=== PATIENT | female | born 1960 | race African-American/Black ===

== ENCOUNTER 2020-05-06 06:59 | Observation (INO) ==
[~2020-05-06 06:59] MED LIST: Total Joint Mixture (50 ml) INTRAART ONE
[2020-05-06] MEDS ORDERED: CeFAZolin Syr 2,000MG/20 ML 2,000 MG/20 ML SYRINGE IVPB ONE (07:28)
[2020-05-06] MEDS ORDERED: Ringers Solution, Lactated 1,000 ML IVC SCH ×2 (07:30→11:40)
[2020-05-06] MEDS ORDERED: Pregabalin 75 MG CAPSULE PO ONE (07:41)
[2020-05-06] MEDS ORDERED: Acetaminophen IV 1,000 MG/100 ML BAG IVPB ONE (07:41)
[2020-05-06] MEDS ORDERED: *HR* Meperidine 25 MG/ML SYRINGE IVP PRN (07:42)
[2020-05-06] MEDS ORDERED: *HR* OxyCODONE Immed Rel 5 MG TABLET PO PRN (07:42)
[2020-05-06] MEDS ORDERED: Ondansetron 4 MG/2 ML VIAL IVP ONE (07:42)
[2020-05-06] MEDS ORDERED: *HR* HYDROmorphone PF 0.5 MG/0.5 ML SYRINGE IVP PRN ×2 (07:42→08:01)
[2020-05-06] MEDS ORDERED: *HR* Midazolam HCl 2 MG/2 ML VIAL ONE ×2 (08:31→08:47)
[2020-05-06] MEDS ORDERED: Ropivacaine/PF 0.5% 30 ML VIAL ONE (08:31)
[2020-05-06] MEDS ORDERED: *HR* FentaNYL (PF) 100 MCG/2 ML VIAL ONE ×2 (08:31→08:46)
[2020-05-06] MEDS ORDERED: *HR* Propofol 200 MG/20 ML VIAL IVP ONE (08:47)
[2020-05-06] MEDS ORDERED: Lidocaine -MPF 2% 2 ML VIAL ONE (08:47)
[2020-05-06] MEDS ORDERED: Neostigmine Methylsulfate 3 MG/3 ML SYRINGE ONE (08:49)
[2020-05-06] MEDS ORDERED: Ethanol\\Acetic Acid\\Na Ace\\Ben 1,000 ML IRRIG.SOLN IR ONE (09:12)
[2020-05-06] MEDS ORDERED: Vancomycin 1,000 MG VIAL ONE (09:13)
[2020-05-06] MEDS ORDERED: *HR* PHENYLEPHRINE 1,000 MCG/10 ML SYRINGE IVP ONE (09:40)
[2020-05-06] MEDS ORDERED: Tranexamic Acid 1,000 MG/10 ML VIAL ONE (09:40)
[2020-05-06] MEDS ORDERED: *HR* Phenylephrine 10 MG/ML VIAL ONE (10:02)
[2020-05-06 11:16] LABS: Hemoglobin 10.1 g/dL (11.5-15.4)
[2020-05-06] MEDS ORDERED: Naloxone 0.4 MG/ML INJ IVP PRN (11:40)
[2020-05-06] MEDS ORDERED: Dextrose Gel 15 GM/37.5 ML TUBE PO PRN ×2 (11:40)
[2020-05-06] MEDS ORDERED: *HR* Promethazine 25 MG/ML VIAL IVP PRN (11:40)
[2020-05-06] MEDS ORDERED: Ondansetron 4 MG/2 ML VIAL IVP PRN (11:40)
[2020-05-06] MEDS ORDERED: Sennosides 8.6 MG TABLET PO PRN (11:40)
[2020-05-06] MEDS ORDERED: D5% in Water 1,000 ML IVC PRN (11:40)
[2020-05-06] MEDS ORDERED: *HR* Dextrose 50 % in Water (Vial) 50 ML VIAL IVP PRN (11:40)
[2020-05-06] MEDS ORDERED: MOM Conc 10 ML UD.LIQ PO PRN (11:40)
[2020-05-06] MEDS: Insulin LISPRO 300 UNITS/3 ML VIAL SQ SCH ×3 (13:07→22:18)
[2020-05-06] MEDS: Multivit/Ca/Min/Fe/FA 1 TAB TABLET PO SCH (13:07)
[2020-05-06] MEDS: hydroCHLOROthiazide 25 MG TABLET PO SCH (13:07)
[2020-05-06] MEDS: CeFAZolin 2 GM/120 ML BAG IVPB SCH ×2 (15:59→23:30)
[2020-05-06] MEDS: *HR* OxyCODONE Immed Rel 5 MG TABLET PO PRN ×2 (16:00→22:09)
[2020-05-06] MEDS: Ascorbic Acid 500 MG TABLET PO SCH (16:01)
[2020-05-07 06:17] LABS: Basophils % 0.3 %; Eosinophils # 0.2 K/mcL (0.0-0.6); Eosinophils % 1.3 %; Hemoglobin 9.4 g/dL (11.5-15.4); Immature Granulocytes % 0.5 % (0-4); Lymphocytes # 2.8 K/mcL (0.6-4.6); Lymphocytes % 20.5 %; Mean Corpuscular HGB Conc 29.4 g/dL (31.6-35.5); Mean Corpuscular Hemoglobin 22.2 pg (28.0-33.3); Mean Corpuscular Volume 75.7 fL (83.0-100.0); Mean Platelet Volume 10.8 fL (9.4-12.4); Monocytes % 14.9 %; Neutrophils # 8.4 K/mcL (1.6-8.9); Platelet Count 370 K/mcL (140-400); Red Blood Count 4.23 M/mcL (3.82-4.97); Red Cell Distribution Width 19.9 % (11.5-14.5); Segmented Neutrophils % 62.5 %; White Blood Count 13.5 K/mcL (4.3-11.1)
[2020-05-07 06:36] LABS: BUN/Creatinine Ratio 39 (6-26); Blood Urea Nitrogen 22 mg/dL (8-23); Calcium 9.1 mg/dL (8.6-10.3); Carbon Dioxide 26 mEq/L (23-29); Chloride 103 mEq/L (98-107); Glucose 90 mg/dL (70-105); Osmolality,Calculated 283 (280-300); Potassium 4.3 mEq/L (3.5-5.1); Sodium 135 mEq/L (136-145); eGFR For African Americans > 60 (> 60); eGFR For Non-African Americans > 60 (> 60)
[2020-05-07] MEDS: Ascorbic Acid 500 MG TABLET PO SCH ×2 (07:45→16:05)
[2020-05-07] MEDS: Multivit/Ca/Min/Fe/FA 1 TAB TABLET PO SCH (07:45)
[2020-05-07] MEDS: hydroCHLOROthiazide 25 MG TABLET PO SCH (07:46)
[2020-05-07] MEDS: Aspirin Enteric Coated 81 MG Tablet PO SCH (07:46)
[2020-05-07] MEDS: Insulin LISPRO 300 UNITS/3 ML VIAL SQ SCH ×4 (07:47→20:45)
[2020-05-07] MEDS: *HR* OxyCODONE Immed Rel 5 MG TABLET PO PRN (11:12)
[2020-05-07] MEDS: HYDROcodone BIT/Homatropine 5 MG TABLET PO PRN ×2 (16:08→20:43)
[2020-05-08] MEDS: *HR* OxyCODONE Immed Rel 5 MG TABLET PO PRN (03:29)
[2020-05-08 07:32] LABS: Basophils # 0.1 K/mcL (0.0-0.2); Basophils % 0.5 %; Eosinophils # 0.4 K/mcL (0.0-0.6); Eosinophils % 2.8 %; Hematocrit 29.5 % (35.3-44.9); Hemoglobin 8.9 g/dL (11.5-15.4); Immature Granulocytes % 0.6 % (0-4); Lymphocytes # 2.8 K/mcL (0.6-4.6); Lymphocytes % 22.9 %; Mean Corpuscular HGB Conc 30.2 g/dL (31.6-35.5); Mean Corpuscular Hemoglobin 22.4 pg (28.0-33.3); Mean Corpuscular Volume 74.1 fL (83.0-100.0); Mean Platelet Volume 11.2 fL (9.4-12.4); Monocytes # 1.4 K/mcL (0.0-1.3); Monocytes % 11.4 %; Neutrophils # 7.6 K/mcL (1.6-8.9); Platelet Count 407 K/mcL (140-400); Red Blood Count 3.98 M/mcL (3.82-4.97); Red Cell Distribution Width 19.5 % (11.5-14.5); Segmented Neutrophils % 61.8 %; White Blood Count 12.3 K/mcL (4.3-11.1)
[2020-05-08 07:51] LABS: BUN/Creatinine Ratio 33 (6-26); Blood Urea Nitrogen 18 mg/dL (8-23); Calcium 8.7 mg/dL (8.6-10.3); Carbon Dioxide 28 mEq/L (23-29); Chloride 100 mEq/L (98-107); Glucose 94 mg/dL (70-105); Osmolality,Calculated 274 (280-300); Potassium 3.9 mEq/L (3.5-5.1); Sodium 131 mEq/L (136-145); eGFR For African Americans > 60 (> 60); eGFR For Non-African Americans > 60 (> 60)
[2020-05-08] MEDS: Aspirin Enteric Coated 81 MG Tablet PO SCH (09:11)
[2020-05-08] MEDS: Multivit/Ca/Min/Fe/FA 1 TAB TABLET PO SCH (09:11)
[2020-05-08] MEDS: Ascorbic Acid 500 MG TABLET PO SCH (09:11)
[2020-05-08] MEDS: hydroCHLOROthiazide 25 MG TABLET PO SCH (09:12)
[2020-05-08] MEDS: Insulin LISPRO 300 UNITS/3 ML VIAL SQ SCH ×2 (09:13→11:55)
[2020-05-08 10:19] VITALS: BP 126/80
== END 2020-05-08 14:22 | disposition home health service (06) ==
LOC: SAMDAY 06:59 → 3NENU 06:59
PROVIDERS: ADMIT Orthopaedic Surgery; ATTEND Orthopaedic Surgery

== ENCOUNTER 2020-11-15 07:45 | Observation (INO) ==
[2020-11-15] MEDS ORDERED: CeFAZolin Syr 2,000MG/20 ML 2,000 MG/20 ML SYRINGE IVPB ONE (08:06)
[2020-11-15] MEDS ORDERED: Ringers Solution, Lactated 1,000 ML IVC SCH ×2 (08:15→11:48)
[2020-11-15] MEDS ORDERED: *HR* HYDROmorphone PF 0.5 MG/0.5 ML SYRINGE IVP PRN (08:22)
[2020-11-15] MEDS ORDERED: Ondansetron 4 MG/2 ML VIAL IVP PRN ×2 (08:22→11:48)
[2020-11-15] MEDS ORDERED: Gabapentin 300 MG CAPSULE PO ONE (08:22)
[2020-11-15] MEDS ORDERED: Celecoxib 200 MG CAPSULE PO ONE (08:22)
[2020-11-15] MEDS ORDERED: *HR* OxyCODONE Immed Rel 5 MG TABLET PO PRN (08:22)
[2020-11-15] MEDS ORDERED: *HR* OxyCODONE ER (12 HR) 10 MG TABLET PO ONE (08:22)
[2020-11-15] MEDS ORDERED: Vancomycin 1,000 MG VIAL ONE (08:25)
[2020-11-15] MEDS ORDERED: Ethanol\\Acetic Acid\\Na Ace\\Ben 1,000 ML IRRIG.SOLN IR ONE (08:25)
[2020-11-15] MEDS ORDERED: *HR* Midazolam HCl 2 MG/2 ML VIAL ONE (08:29)
[2020-11-15] MEDS ORDERED: *HR* FentaNYL (PF) 100 MCG/2 ML VIAL ONE (08:29)
[2020-11-15] MEDS ORDERED: ROPIVACAINE/PF/NS 0.25% 1 EACH SYRINGE INTRAART ONE (08:30)
[2020-11-15] MEDS ORDERED: Lidocaine -MPF 2% 2 ML VIAL ONE (08:37)
[2020-11-15] MEDS ORDERED: *HR* Propofol 200 MG/20 ML VIAL IVP ONE (08:37)
[2020-11-15] MEDS ORDERED: Dexamethasone 4 MG/ML VIAL ONE (08:38)
[2020-11-15] MEDS ORDERED: Ondansetron 4 MG/2 ML VIAL ONE (08:38)
[2020-11-15] MEDS ORDERED: *HR* Magnesium Sulfate 1 GM/2 ML VIAL ONE ×2 (09:14→11:44)
[2020-11-15] MEDS ORDERED: *HR* PHENYLEPHRINE 1,000 MCG/10 ML SYRINGE IVP ONE (09:59)
[2020-11-15] MEDS ORDERED: TOTAL JOINT MIXTURE (100ML) INTRAART ONE (10:05)
[2020-11-15] MEDS ORDERED: Povidone-Iodine 45 ML, Sodium Chloride IRRigation 1,000 ML IR ONE (10:05)
[2020-11-15 11:27] LABS: Hematocrit 35.7 % (35.3-44.9); Hemoglobin 10.8 g/dL (11.5-15.4)
[2020-11-15] MEDS ORDERED: Tranexamic Acid 1,000 MG/10 ML VIAL ONE (11:40)
[2020-11-15] MEDS ORDERED: *HR* Dextrose 50 % in Water (Vial) 50 ML VIAL IVP PRN (11:48)
[2020-11-15] MEDS ORDERED: Dextrose Gel 15 GM/37.5 ML TUBE PO PRN ×2 (11:48)
[2020-11-15] MEDS ORDERED: *HR* Promethazine 25 MG/ML VIAL IM PRN (11:48)
[2020-11-15] MEDS ORDERED: Sennosides 8.6 MG TABLET PO PRN (11:48)
[2020-11-15] MEDS ORDERED: MOM Conc 10 ML UD.LIQ PO PRN (11:48)
[2020-11-15] MEDS ORDERED: HYDROcodone BIT/Homatropine 5 MG TABLET PO PRN (11:48)
[2020-11-15] MEDS ORDERED: D5% in Water 1,000 ML IVC PRN (11:48)
[2020-11-15] MEDS ORDERED: Naloxone 0.4 MG/ML INJ IVP PRN (11:48)
[2020-11-15] MEDS: Insulin LISPRO 300 UNITS/3 ML VIAL SUBQ SCH ×3 (12:00→21:08)
[2020-11-15] MEDS: Multivit/Ca/Min/Fe/FA 1 TAB TABLET PO SCH (12:04)
[2020-11-15] MEDS: *HR* OxyCODONE Immed Rel 5 MG TABLET PO PRN ×2 (13:29→21:28)
[2020-11-15] MEDS: Ascorbic Acid 500 MG TABLET PO SCH (16:26)
[2020-11-15] MEDS: CeFAZolin 2 GM/120 ML BAG IVPB SCH ×2 (16:26→23:58)
[2020-11-16] MEDS: *HR* OxyCODONE Immed Rel 5 MG TABLET PO PRN ×5 (02:28→21:25)
[2020-11-16 03:59] LABS: Basophils % 0.2 %; Eosinophils % 0.2 %; Hemoglobin 10.7 g/dL (11.5-15.4); Immature Granulocytes % 0.4 % (0-4); Lymphocytes # 1.9 K/mcL (0.6-4.6); Lymphocytes % 15.8 %; Mean Corpuscular HGB Conc 29.7 g/dL (31.6-35.5); Mean Corpuscular Hemoglobin 24.9 pg (28.0-33.3); Mean Corpuscular Volume 83.9 fL (83.0-100.0); Mean Platelet Volume 11.4 fL (9.4-12.4); Monocytes # 1.8 K/mcL (0.0-1.3); Monocytes % 14.4 %; Neutrophils # 8.4 K/mcL (1.6-8.9); Platelet Count 362 K/mcL (140-400); Red Blood Count 4.29 M/mcL (3.82-4.97); Red Cell Distribution Width 16.4 % (11.5-14.5); White Blood Count 12.2 K/mcL (4.3-11.1)
[2020-11-16 04:18] LABS: BUN/Creatinine Ratio 28 (6-26); Blood Urea Nitrogen 19 mg/dL (8-23); Calcium 8.8 mg/dL (8.6-10.3); Carbon Dioxide 26 mEq/L (23-29); Chloride 101 mEq/L (98-107); Glucose 117 mg/dL (70-105); Osmolality,Calculated 281 (280-300); Potassium 4.5 mEq/L (3.5-5.1); Sodium 134 mEq/L (136-145); eGFR For African Americans > 60 (> 60); eGFR For Non-African Americans > 60 (> 60)
[2020-11-16] MEDS: Aspirin Enteric Coated 81 MG Tablet PO SCH ×2 (08:04→12:09)
[2020-11-16] MEDS: Multivit/Ca/Min/Fe/FA 1 TAB TABLET PO SCH (08:05)
[2020-11-16] MEDS: Insulin LISPRO 300 UNITS/3 ML VIAL SUBQ SCH ×4 (08:05→21:25)
[2020-11-16] MEDS: Ascorbic Acid 500 MG TABLET PO SCH ×2 (08:05→16:29)
[2020-11-16] MEDS: hydroCHLOROthiazide 25 MG TABLET PO SCH (08:05)
[2020-11-16] MEDS ORDERED: Ketorolac 30 MG/ML VIAL IVP PRN (10:56)
[2020-11-17 01:30] LABS: Basophils # 0.1 K/mcL (0.0-0.2); Basophils % 0.6 %; Eosinophils # 0.3 K/mcL (0.0-0.6); Eosinophils % 2.2 %; Hematocrit 34.5 % (35.3-44.9); Hemoglobin 10.6 g/dL (11.5-15.4); Immature Granulocytes % 0.7 % (0-4); Lymphocytes # 3.4 K/mcL (0.6-4.6); Mean Corpuscular HGB Conc 30.7 g/dL (31.6-35.5); Mean Corpuscular Hemoglobin 25.8 pg (28.0-33.3); Mean Corpuscular Volume 83.9 fL (83.0-100.0); Mean Platelet Volume 11.1 fL (9.4-12.4); Monocytes # 1.6 K/mcL (0.0-1.3); Monocytes % 12.9 %; Neutrophils # 7.2 K/mcL (1.6-8.9); Platelet Count 344 K/mcL (140-400); Red Blood Count 4.11 M/mcL (3.82-4.97); Red Cell Distribution Width 16.1 % (11.5-14.5); Segmented Neutrophils % 56.6 %; White Blood Count 12.6 K/mcL (4.3-11.1)
[2020-11-17 01:58] LABS: BUN/Creatinine Ratio 27 (6-26); Blood Urea Nitrogen 16 mg/dL (8-23); Calcium 8.6 mg/dL (8.6-10.3); Carbon Dioxide 24 mEq/L (23-29); Chloride 101 mEq/L (98-107); Glucose 96 mg/dL (70-105); Osmolality,Calculated 277 (280-300); Potassium 4.4 mEq/L (3.5-5.1); Sodium 133 mEq/L (136-145); eGFR For African Americans > 60 (> 60); eGFR For Non-African Americans > 60 (> 60)
[2020-11-17] MEDS: *HR* OxyCODONE Immed Rel 5 MG TABLET PO PRN ×2 (02:38→17:01)
[2020-11-17] MEDS: Aspirin Enteric Coated 81 MG Tablet PO SCH (07:52)
[2020-11-17] MEDS: Multivit/Ca/Min/Fe/FA 1 TAB TABLET PO SCH (07:52)
[2020-11-17] MEDS: hydroCHLOROthiazide 25 MG TABLET PO SCH (07:52)
[2020-11-17] MEDS: Ascorbic Acid 500 MG TABLET PO SCH ×2 (07:52→17:02)
[2020-11-17] MEDS: Insulin LISPRO 300 UNITS/3 ML VIAL SUBQ SCH ×4 (07:53→20:20)
[2020-11-18 07:07] VITALS: BP 114/70
[2020-11-18] MEDS: Insulin LISPRO 300 UNITS/3 ML VIAL SUBQ SCH (07:26)
[2020-11-18] MEDS: *HR* OxyCODONE Immed Rel 5 MG TABLET PO PRN (08:34)
[2020-11-18] MEDS: Multivit/Ca/Min/Fe/FA 1 TAB TABLET PO SCH (08:38)
[2020-11-18] MEDS: hydroCHLOROthiazide 25 MG TABLET PO SCH (08:38)
[2020-11-18] MEDS: Ascorbic Acid 500 MG TABLET PO SCH (08:39)
[2020-11-18] MEDS: Aspirin Enteric Coated 81 MG Tablet PO SCH (08:39)
== END 2020-11-18 16:15 | disposition home health service (06) ==
LOC: SAMDAY 07:45 → 3NENU 07:45
PROVIDERS: ADMIT Orthopaedic Surgery; ATTEND Orthopaedic Surgery